=== PATIENT | male | born 1945 | race Caucasian/White ===

== ENCOUNTER → 2017-09-12 08:49 | Outpatient (CLI) | payer OTHER ==
[2017-09-12 09:43] LABS: ALBUMIN 3.6 g/dL (3.4-5.0); ALKALINE PHOSPHATASE 59 U/L (46-116); ALT (SGPT) 28 U/L (10-68); CALC OSMOLALITY 286 mosm/kg (275-300); CALCIUM 8.8 mg/dL (8.5-10.1); CARBON DIOXIDE 32.9 mmol/L (21.0-32.0); CHLORIDE - SERUM 104 mmol/L (98-107); GLUCOSE 110 mg/dL (74-106); PROTEIN - SERUM 7.3 g/dL (6.4-8.2); SODIUM 143 mmol/L (136-145); UREA NITROGEN 14 mg/dL (7-18); eGFR NON AFRICAN AMERICAN 78 mL/min (90-120)
[2017-09-12 14:25] LABS: APPEARANCE CLEAR (CLEAR); BILIRUBIN NEGATIVE (NEGATIVE); COLOR YELLOW (YELLOW); GLUCOSE NEGATIVE (NEGATIVE); KETONE NEGATIVE (NEGATIVE); NITRITE NEGATIVE (NEGATIVE); PROTEIN TRACE mg/dL (NEGATIVE); SPECIFIC GRAVITY 1.015 (1.005-1.020); UROBILINOGEN NORMAL (NORMAL)
[2017-09-12 14:26] LABS: BACTERIA FEW /hpf (NONE SEEN); EPITHELIAL CELLS 0-5 /hpf (0-5); MUCUS >1+ /lpf (NONE SEEN); WHITE CELLS - URINE OCC /hpf (0-5)
== END | disposition home or self-care (01) ==
LOC: D.LAB 08:49
PROVIDERS: Orthopaedic Surgery
DX: E11.9 Type 2 diabetes mellitus without complications (principal)

== ENCOUNTER → 2018-12-04 08:38 | Outpatient (CLI) | payer OTHER | END | disposition home or self-care (01) | LOC: D.MRI 08:38 | PROVIDERS: ATTEND Family Medicine | DX: M79.602 Pain in left arm (principal) ==

== ENCOUNTER 2019-06-10 14:57 | Emergency (ER) | payer OTHER ==
[~2019-06-10] VITALS: Ht 175.3 cm; Wt 109.1 kg
[2019-06-10 15:37] VITALS: Ht 175.3 cm; Wt 109.1 kg
[2019-06-10] MEDS ORDERED: PROSCAR5 MG PO (15:38)
[2019-06-10] MEDS ORDERED: HYDROCHLOROTH12.5 M1 PO (15:38)
[2019-06-10] MEDS ORDERED: NORVASC2.5 MG PO (15:38)
[2019-06-10] MEDS ORDERED: GLUCOPHAGE500 MG PO (15:39)
[2019-06-10] MEDS ORDERED: MUSCLE RELAXER (15:39)
[2019-06-10] MEDS ORDERED: CODEINE SULFATE PO (15:40)
[2019-06-10 16:17] LABS: BASOPHILS 0.3 % (0-2); EOSINOPHILS 0.5 % (0-7); HEMATOCRIT 32.8 % (42.0-54.0); HEMOGLOBIN 10.6 g/dL (13.5-17.5); IMMATURE GRANULOCYTES 0.2 % (0-5); MCH 25.2 pg (26.0-34.0); MCHC 32.3 g/dL (31.0-37.0); MCV 78.1 fL (80.0-100.0); MEAN PLATELET VOLUME 10.9 fL (7.4-10.4); MONOCYTES 5.3 % (2-11); NEUTROPHILS 57.7 % (40-80); PLATELET COUNT 167 10x3/uL (130-400); RDW 15.1 % (11.5-14.5)
[2019-06-10 16:32] LABS: ANION GAP 10.8 mmol/L (8-16); CALCIUM 8.9 mg/dL (8.5-10.1); CARBON DIOXIDE 30.1 mmol/L (21.0-32.0); CREATININE - SERUM 1.1 mg/dL (0.6-1.3); POTASSIUM - SERUM 3.9 mmol/L (3.5-5.1)
[2019-06-10 16:37] LABS: ALBUMIN 3.4 g/dL (3.4-5.0); BILIRUBIN - TOTAL 0.21 mg/dL (0.2-1.3); PROTEIN - SERUM 7.1 g/dL (6.4-8.2)
[2019-06-10 18:38] VITALS: BP 153/89
== END 2019-06-10 18:38 | disposition home or self-care (01) ==
LOC: D.ER 14:57
PROVIDERS: Family Medicine
DX: J01.90 Acute sinusitis, unspecified (principal); I10 Essential (primary) hypertension; E11.9 Type 2 diabetes mellitus without complications; Z79.84 Long term (current) use of oral hypoglycemic drugs